=== PATIENT | male | born 1970 | race African-American/Black ===

== ENCOUNTER → 2018-10-11 | Outpatient (CLI) | payer MEDICAID, OTHER ==
[~2018-10-11] MED LIST: ALBUTEROL SULFATE 0.083% NEB 2.5 MG/3 ML AMPUL NEB ONE
== END ==
LOC: RT 10:28
DX: R06.02 Shortness of breath (principal); I73.9 Peripheral vascular disease, unspecified
CPT/HCPCS: 94060; 94729